=== PATIENT | male | born 1965 | race Caucasian/White ===

== ENCOUNTER 2025-02-08 08:51 | Outpatient (AMB) | payer OTHER, SELFPAY ==
--- NOTE | 2025-02-08 09:00 | A.OFFVIS_ITS ---
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 He was here for symptoms of numbness and tingling and passing out. His brother suffered from seizure disorder in childhood. Ba did not have any h/o sigificant head injury or drug abuse. In 2022, while he was in usual of health, one night, he went to the restroom to urinate. Apparently, after that, when he was walking back, something happened. He lost consciousness and fell forward hitting his face on the tub sustaining some fractures. He was taken to [facility] where no other pathology was found. The next day, he started having abdominal pain and went back to hospital when he was diagnosed with colon obstruction leading to surgery. His colon condition stabilized but he started having episodes of tingling and numbness. These episodes were happening about 4 times a week, each time lasting for a few minutes. There was no known trigger except that one time it was triggered by hearing a bad news. Typically, he would start feeling tingling in feet, which would extend to involve his legs and body to his head. With that, he might have a lightheaded feeling like he was going to pass out. Rarely, he has passed out, the last one in fall of 2023.?There was no witness to passing out episodes. He denied any associated de ja vu feeling, dissociated feeling, abnormal taste or smell, or headache. One episode was different causing few seconds of inability to speak while he was in a meeting. People in the meeting became aware and asked him if he was OK. He had a brain MRI at [facility] that according to the report revealed a left cerebellar lacunar infarct and a single T2 focal lesion in right frontal WM. EEG at [facility] revealed rare focal slowing in right frontotemporal region. A 48 hour ambulatory EEG was schedule but then was canceled as he stated that he started taking the medicine regular basis and was not having any symptoms and prefer to continue that way. There was no side effect. [facility] Medical History (Updated 02/08/25 @ 09:02 by Arben Peterson MD) Complex partial seizures Review of Systems Const Details: - Neurological: Denies any seizures since beginning medication. - Medication adherence: Reports inconsistency with taking the nighttime dose. Physical Exam Neuro Other: Mental Status: Alert and oriented to person, place, and time. Normal attention. Normal spontaneous speech, fluency, and comprehension. No obvious issues with mood and memory. Affect is appropriate. Cranial Nerves: CN II: Visual rodríguez full to confrontation, visual acuity intact. CN III, IV, : Pupils equal, round, reactive to light and accommodation. Extraocular movements are normal. CN V: Facial sensation is normal. CN VII: Facial movements symmetrical. CN VIII: Hearing intact to bedside conversation is normal. CN IX, X: Palate elevates symmetrically. CN XI: Shoulder shrug and head turn symmetrical. CN XII: Tongue midline without atrophy or fasciculations. Extrapyramidal: Full facial expressions and blinking. No rigidity. Movements are appropriate with no tremor or abnormality. Speech: Normal; no dysarthria or tremor. Assessment & Plan Assessment & Plan (1) Complex partial seizures: Comment: MRI brain WO at [facility] in Sep 2024: R frontal punctate WM lesion, left cerebellar lacune (reported) Routine EEG at [facility] in 2024: Focal R frontotemporal slowing Code(s): G40.209 - Localization-related (focal) (partial) symptomatic epilepsy and epileptic syndromes with complex partial seizures, not intractable, without status epilepticus Category: Medical Plan: In our discussions, I emphasized the significance of medication adherence to the patient, noting the increased risk of nighttime seizures and associated injury if doses are missed, especially at night. We discussed how his current once- daily intake results in half-time protection against seizures given the medication kinetics. Potential adjustments to his current dosage, up to a maximum tolerated dose of 900 mg twice daily, were explained should symptoms develop. We discussed no noted significant side effects from current medication, highlighting advantages in tolerability. Lifestyle approaches to manage risk factors and improve adherence were reviewed, including possible reminder systems. I scheduled routine follow-up appointments every six months but encouraged him to reach out should there be changes or concerns with his health. The option of extra dosage ingestion for high-risk situations, such as night travel or flights, was reviewed. Plan Impression: Probably complex partial secondarily generalized seizures with no obvious epileptogenic lesion noted on MRI. Recommendations: 1. Oxcarbazepine 150 mg twice a day, which at this time was working. Coding Level of Care Code Est Pt Level 4 (02422) Diagnoses Complex partial seizures G40.209
--- OUTSIDE RECORDS SUMMARY | 2025-02-08 09:22 | XMS_ITS | Patient Health Record ---
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 B1, Whole Blood; 642864-Pzqnodvqpyzjf Acid, Serum was developed and its performance characteristics determined by [facility]. It has not been cleared or approved by the Food and Drug Administration. Homocyst(e)ine 10.7 0.0-14.5 umol/L Methylmalonic Acid, Serum-70 6961 Reviewed date:12/27/2024 03:18:14 PM Interpretation: Performing Lab:[facility] [place], [address] [place] [address], Phone - [phone], Director - Yosefy Notes/Report: Test(s) 166066-Ggy. B1, Whole Blood; 391584-Kmoxvgmciefbu Acid, Serum was developed and its performance characteristics determined by [facility]. It has not been cleared or approved by the Food and Drug Administration. Methylmalonic Acid, Serum 186 0-378 nmol/L Comp. Metabolic Panel (14)-3 93737 Reviewed date:12/27/2024 01:39:18 PM Interpretation: Performing Lab:[facility] [place], [address] [facility], Phone - [phone], Director - Jodry Notes/Report: Test(s) 825953-Rbh. B1, Whole Blood; 973299-Muvjqbnukdjah Acid, Serum was developed and its performance characteristics determined by [facility]. It has not been cleared or approved by the Food and Drug Administration. Glucose 133 70-99 mg/dL BUN 13 6-24 mg/dL Creatinine 0.90 0.76-1.27 mg/dL eGFR 100 >59 mL/min/1.73 BUN/Creatinine Ratio 14 9-20 Sodium 140 134-144 mmol/L Potassium 4.5 3.5-5.2 mmol/L Chloride 101 96-106 mmol/L Carbon Dioxide, Total 20 20-29 mmol/L Calcium 10.1 8.7-10.2 mg/dL Protein, Total 6.8 6.0-8.5 g/dL Albumin 4.6 3.8-4.9 g/dL Globulin, Total 2.2 1.5-4.5 g/dL Bilirubin, Total 1.3 0.0-1.2 mg/dL Alkaline Phosphatase 69 44-121 IU/L AST (SGOT) 38 0-40 IU/L ALT (SGPT) 41 0-44 IU/L Vitamin B1 (Thiamine), Blood -[id number] Reviewed date:12/27/2024 10:55:42 AM Interpretation: Performing Lab:[facility] [place], [address] [facility], [place], Phone - [phone], Director - [facility] Notes/Report: Test(s) 040959-Aeg. B1, Whole Blood; 354699-Ebozttpvaplku Acid, Serum was developed and its performance characteristics determined by [facility]. It has not been cleared or approved by the Food and Drug Administration. Vit. B1, Whole Blood 140.8 66.5-200.0 nmol/L CBC with Diff, Platelet, NLR -[id number] Reviewed date:01/19/2025 10:05:30 AM Interpretation: Performing Lab:[facility] [place], [address] [facility], [place], Phone - [phone], Director - [facility] Notes/Report: Test(s) 115944-Nax. B1, Whole Blood; 438277-Nanbnuuebpjza Acid, Serum was developed and its performance characteristics determined by [facility]. It has not been cleared or approved by the Food and Drug Administration. WBC 4.9 3.4-10.8 x10E3/uL RBC 4.13 4.14-5.80 x10E6/uL Hemoglobin 15.1 13.0-17.7 g/dL Hematocrit 44.0 37.5-51.0 % MCV 107 79-97 fL MCH 36.6 26.6-33.0 pg MCHC 34.3 31.5-35.7 g/dL RDW 13.2 11.6-15.4 % Platelets 208 150-450 x10E3/uL Neutrophils 78 Not Estab. % Lymphs 10 Not Estab. % Monocytes 10 Not Estab. % Eos 0 Not Estab. % Basos 1 Not Estab. % Neutrophils (Absolute) 3.8 1.4-7.0 x10E3/uL Lymphs (Absolute) 0.5 0.7-3.1 x10E3/uL Neut/Lymph Ratio 7.6 0.0-2.9 ratio Published COVID-19 studies suggest: Low likelihood of severe COVID-19 disease progression 0.0-2.9 High likelihood of severe COVID-19 disease progression >4.9 Monocytes(Absolute) 0.5 0.1-0.9 x10E3/uL Eos (Absolute) 0.0 0.0-0.4 x10E3/uL Baso (Absolute) 0.0 0.0-0.2 x10E3/uL Immature Granulocytes 1 Not Estab. % Immature Grans (Abs) 0.0 0.0-0.1 x10E3/uL Vitamin B12 and Folate-79144 0 Reviewed date:12/27/2024 11:44:54 AM Interpretation: Performing Lab:[facility] [address], Phone - [phone], Director - [facility] Notes/Report: Test(s) 900139-Ozs. B1, Whole Blood; 671997-Xxbuirdydsepl Acid, Serum was developed and its performance characteristics determined by [facility]. It has not been cleared or approved by the Food and Drug Administration. Vitamin B12 770 889-0362 pg/mL Folate (Folic Acid), Serum 19.4 >3.0 ng/mL A serum folate concentration of less than 3.1 ng/mL is considered to represent clinical deficiency. PSA (Serial Monitor)-[id number] Reviewed date:10/03/2024 01:38:09 PM Interpretation: Performing Lab:[facility] [place], Phone - [phone], Director - MDJodry Notes/Report: Prostate Specific Ag 1.6 0.0-4.0 ng/mL [facility] ECLIA methodology. . According to the [employer], Serum PSA should decrease and remain at undetectable levels after radical prostatectomy. The AUA defines biochemical recurrence as an initial PSA value 0.2 ng/mL or greater followed by a subsequent confirmatory PSA value 0.2 ng/mL or greater. Values obtained with different assay methods or kits cannot be used interchangeably. Results cannot be interpreted as absolute evidence of the presence or absence of malignant disease. Lipid Panel-095792 Reviewed date:11/21/2024 08:54:55 AM Interpretation: Performing Lab:[facility], [address] [place] [address], Phone - [phone], Director - MDNikkydry Notes/Report: Cholesterol, Total 185 100-199 mg/dL Triglycerides 51 0-149 mg/dL HDL Cholesterol 77 >39 mg/dL VLDL Cholesterol Roscoe 10 5-40 mg/dL LDL Chol Calc (NIH) 98 0-99 mg/dL Lipid Panel-[id number] Reviewed date:09/30/2024 02:00:41 PM Interpretation: Performing Lab:[facility] [place], [address] [facility], Phone - [phone], Director - MDNikkydry Notes/Report: Cholesterol, Total 213 100-199 mg/dL Triglycerides 95 0-149 mg/dL HDL Cholesterol 87 >39 mg/dL VLDL Cholesterol Roscoe 16 5-40 mg/dL LDL Chol Calc (NIH) 110 0-99 mg/dL CBC, Platelet, No Differenti al-664458 Reviewed date:09/30/2024 02:01:18 PM Interpretation: Performing Lab:[facility], [address] [place] [address], Phone - [phone], Director - MDJodry Notes/Report: WBC 5.6 3.4-10.8 x10E3/uL RBC 4.12 4.14-5.80 x10E6/uL Hemoglobin 15.2 13.0-17.7 g/dL Hematocrit 43.0 37.5-51.0 % MCV 104 79-97 fL MCH 36.9 26.6-33.0 pg MCHC 35.3 31.5-35.7 g/dL RDW 14.4 11.6-15.4 % Platelets 265 150-450 x10E3/uL Reason For Referral Reason MRI finding of Chron ic Lacunar infarct, no significant past medical history. Continues to experience tingling/weakness in his body intermittently [facility] PLEASE EVALUATE AND TREAT Diagnosis 1 Other cerebral infar ction due to occlusion or stenosis of small artery (I63.81) Referral Organization [facility] Referring Provider First Name Willie Referring Provider Last Name Leif Referred Provider Specialty Neurology General Notes Referral was [facility]ed [facility]. Please contact for scheduling, Mami Martínez 09/23/2024 10:25:32 AM > Referral Priority Urgent Reason macrocytic anemia please evaluate and treat Diagnosis 1 Abnormal level of bl ood mineral (R79.0) Referral Organization [facility] Referring Provider First Name ASHLEY Referring Provider Last Name NATALYA Referring Provider Speciality Internal M edicine Referred Provider Specialty Hematology General Notes Referral was faxed t o [facility]. Please contact patient for scheduling ., Mami Martínez 01/19/2025 09:56:14 AM > Referral Priority Routine Medications Medication SIG (Take, Route, Frequency, Duration) Notes Start Date End Date Status Sertraline HCl 25 MG TAKE 1 TABLET BY MO UTH EVERY DAY; Duration: 90 Not-Taking OXcarbazepine 150 MG 1 tablet Orally Tw day 12/16/2024 Active Atorvastatin Calcium 10 MG TAKE 1 TABLET BY MOUTH EVERY DAY FOR 30 DAYS; Duration: 90 Active hydrALAZINE HCl 25 MG TAKE 1 TABLET BY M OUTH ONCE A DAY WITH FOOD FOR 30 DAYS; Duration: 90 days Active Imuran 50 MG as directed Orally daily Not-Taking azaTHIOprine 75 MG 2 tablets Orally 12/16/2024 Active Immunizations Vaccine Route Administration Date Status Comme nts COVID Moderna Unknown 09/26/2020 Administered COVID Moderna Unknown 10/26/2020 Administered COVID Moderna Unknown 06/13/2021 Administered Social History Tobacco Use: Social History Observation Description Date Details (start date - stop date) Never Smoker NA - NA Tobacco Use/Smoking Question Answer Notes Are you a nonsmoker Problems Problem Type SNOMED Code ICD Code Onset Dates Problem Status W/U Status Risk Notes Problem Squamous cell carcinoma of skin of face (440433125) Squamous cell carcinoma of skin of unspecified parts of face (C44.320) Active confirmed Problem 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, 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 confirmed Problem 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, 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 Problem Essential tremor (578026920) Essential tremor (G25.0) Active confirmed Problem Crohn's disease (55213323) Crohn's disease, unspecified, with other complication (K50.918) Active confirmed Problem Paresthesia (finding) (35386609) Paresthesia of skin (R20.2) Active confirmed Problem Dizziness and giddiness (002491468) Dizziness and giddiness (R42) Active confirmed Problem 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) Active confirmed Problem Generalized anxiety disorder (85211765) JACOB (generalized anxiety disorder) (F41.1) Active confirmed Vital Signs Heart Rate 90 /min 12/16/2024 Temperature 96.5 degrees Fahrenheit 12/16/2024 Blood pressure diastolic 82 mm Hg 12/16/2024 Oximetry 95 % 12/16/2024 Height 5'9'' in 12/16/2024 Blood pressure systolic 120 mm Hg 12/16/2024 Weight 184.8 lbs 12/16/2024 BMI 27.29 kg/m2 12/16/2024 Encounters Encounter Location Date Provider Diagnosis [address] [address] 08/16/[address] [address] 05/02/[address] [address] 05/18/2024 [facility] Crohn's disease, unspecified, with other complication K50.918 ; JACOB (generalized anxiety disorder) F41.1 ; Squamous cell carcinoma of skin of unspecified parts of face C44.320 ; Essential tremor G25.0 ; Other megaloblastic anemias, not elsewhere classified D53.1 ; Encounter for screening for malignant neoplasm of prostate Z12.5 and Foreign body sensation, throat R09.A2 [address] [place] [address] 08/12/2024 Ghadeer Mazloum Syncope and collapse R55 [facility] [address] [facility] [address] [place] [address] 11/15/2024 Ghadeer Mazloum Other cerebral infarction due to occlusion or stenosis of small artery I63.81 ; Unspecified convulsions R56.9 ; Hyperlipidemia, mixed E78.2 and JACOB (generalized anxiety disorder) F41.1 [facility] [address] [facility] [address] [place] [address] 12/16/2024 Ghadeer Chapincitoloum Paresthesia of skin R20.2 [facility] [address] [facility] [address] [place] [address] 05/11/2024 [facility] [address] [facility] [address] [place] [address] 07/28/2024 [facility] [address] [facility] [address] [place] [address] 08/16/2024 [facility] [address] [facility] [address] [place] [address] 08/17/2024 [facility] [address] [facility] [address] [place] [address] 08/23/2024 [facility] [address] [facility] [address] [place] [address] 09/22/2024 [facility] [address] [facility] [address] [place] [address] 09/22/2024 Ghadeer Mazloum Other cerebral infarction due to occlusion or stenosis of small artery I63.81 [facility] [address] [facility] [address] [place] [address] 09/23/2024 [facility] [address] [facility] [address] [place] [address] 09/30/2024 Ghadeer Mazloum Hyperlipidemia, mixe d E78.2 [facility] [address] [facility] [address] [place] [address] 10/04/2024 ASHLEY HOANG [facility] [address] [place] [address] 10/14/2024 Willie Yadav [facility] [address] [place] [address] 11/07/2024 ASHLEY HOANG [facility] [address] [facility] [address] [facility] [place] [address] 01/19/2025 ASHLEY HOANG Assessments Encounter Date Diagnosis (ICD Code) Assessment Notes Treatment Notes Treatment Clinical Notes Section Notes 05/18/2024 Crohn's disease, unspecified, with other complication (ICD-10 - K50.918) Mr. Wolf is a 58-year-old gentleman with Crohn's disease s/p hemicolectomy; sees Dr. Johnson at [facility] here for follow-up. Plan as follows Crohn's disease: - Stable at this point. Continue on Imuran. He has a follow-up with GI at [facility]. JACOB: - Stable at this point. Continue on sertraline 25 mg and hydralazine 25 mg. Patient is deferred to mental health therapy, he was given Ms. Green phone number for contact. Squamous cell carcinoma of the skin - He follows with dermatology on a regular basis. He recently had precancerous lesions removed. Essential tremors - Mild, it is possible due to drinking alcohol. Advised patient on abstinence. 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 Advised patient on abstainence given complications of alcohol. Globus sensation in the throat: - Possible GERD, advised patient on a trial of OTC pepcid, if sxs improve then we will start him on prescribed medication. Screening blood work before next appointment Blood work has been reviewed. General concerns have been discussed I have rendered the services for this patient under direct supervision of Dr. Hoang, who did not see the patient but was available upon request 05/18/2024 JACOB (generalized anxiety disorder) (ICD-10 - F41.1) Mr. Wolf is a 58-year-old gentleman with Crohn's disease s/p hemicolectomy; sees Dr. Johnson at [facility] here for follow-up. Plan as follows Crohn's disease: - Stable at this point. Continue on Imuran. He has a follow-up with GI at [facility]. JACOB: - Stable at this point. Continue on sertraline 25 mg and hydralazine 25 mg. Patient is deferred to mental health therapy, he was given Ms. Green phone number for contact. Squamous cell carcinoma of the skin - He follows with dermatology on a regular basis. He recently had precancerous lesions removed. Essential tremors - Mild, it is possible due to drinking alcohol. Advised patient on abstinence. 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 Advised patient on abstainence given complications of alcohol. Globus sensation in the throat: - Possible GERD, advised patient on a trial of OTC pepcid, if sxs improve then we will start him on prescribed medication. Screening blood work before next appointment Blood work has been reviewed. General concerns have been discussed I have rendered the services for this patient under direct supervision of Dr. Hoang, who did not see the patient but was available upon request 08/12/2024 Syncope and collapse (ICD-10 - R55) Mr. Wolf is a 58-year-old gentleman with Crohn's disease s/p hemicolectomy; sees Dr. Johnson at [facility] here for Losing consciousness again. Plan as follows Syncope - He does have history of syncope, per patient he had a full workup done in the past by his prior PCP including Holter monitor and workup was negative. He mentions that it has been about a year since his last episode of fainting. He mentions that recently he had an emotional moment which triggered his childhood memory, however 2 days after while at work meeting with his colleagues he suddenly experienced tingling sensation in his bilateral extremities Ascending to the upper extremities leading to not being able to speak or move for about 10 seconds and then he experienced postictal episode after. He admits to brief staring episode. He denies any urinary incontinence or biting on the tongue, Convulsions. He is not sure if he had EEG done in the past. Physical examination is unremarkable, no focal neurological Deficit. Negative Romberg. We will do full workup, ordered MRI of the brain without contrast to rule out any abnormalities, EEG of the brain to rule out seizure, Holter monitor to rule out any arrhythmias. His recent blood work was within normal limits. I have rendered the services for this patient under direct supervision of Dr. Hoang, who did not see the patient but was available upon request 09/22/2024 Other cerebral infarction due to occlusion or stenosis of small artery (ICD-10 - I63.81) 09/30/2024 Hyperlipidemia, mixed (ICD-10 - E78.2) 11/15/2024 Unspecified convulsions (ICD-10 - R56.9) Mr. Wolf is a 59-year-old gentleman with Crohn's disease s/p hemicolectomy; sees Dr. Johnson at [facility], Seizure follows with Dr. Peterson, here for Follow-up. Plan as follows Unspecified seizure. He had an EEG which was suggestive for seizure, patient was started on oxcarbazepine but patient did not start the medication yet as hesitant due to side effects. Discussed the importance of being on his medication to avoid any complications from seizures, to discuss discussing with his neurologist and alternative medication with less side effects. He does have a follow-up and a repeat EEG for 48 hours. Lacunar infarct. Incidental finding on MRI of the brain which I did show a chronic small lacunar infarcts. We will optimize management. He is cuurrently on statin, check lipid panel. Goal to be below 70. Blood pressure is well controlled without being on medication. Continue on ASA 81mg. Recent Holter monitor test was negative for arrhythmias. JACOB. His mood is stable currently folllows up with counselor. General concerns have been discussed with the patient I have rendered the services for this patient under direct supervision of Dr. Hoang, who did not see the patient but was available upon request 11/15/2024 Other cerebral infarction due to occlusion or stenosis of small artery (ICD-10 - I63.81) Mr. Wolf is a 59-year-old gentleman with Crohn's disease s/p hemicolectomy; sees Dr. Johnson at [facility], Seizure follows with Dr. Peterson, here for Follow-up. Plan as follows Unspecified seizure. He had an EEG which was suggestive for seizure, patient was started on oxcarbazepine but patient did not start the medication yet as hesitant due to side effects. Discussed the importance of being on his medication to avoid any complications from seizures, to discuss discussing with his neurologist and alternative medication with less side effects. He does have a follow-up and a repeat EEG for 48 hours. Lacunar infarct. Incidental finding on MRI of the brain which I did show a chronic small lacunar infarcts. We will optimize management. He is cuurrently on statin, check lipid panel. Goal to be below 70. Blood pressure is well controlled without being on medication. Continue on ASA 81mg. Recent Holter monitor test was negative for arrhythmias. JACOB. His mood is stable currently folllows up with counselor. General concerns have been discussed with the patient I have rendered the services for this patient under direct supervision of Dr. Hoang, who did not see the patient but was available upon request 12/16/2024 Paresthesia of skin (ICD-10 - R20.2) Mr. Wolf is a 59-year-old gentleman with Crohn's disease s/p hemicolectomy; sees Dr. Johnson at [facility] here for Follow-up on recent urgent care visit. Patient presented with a tingling sensation starting in his feet and going up. Plan as follows Paresthesia of the skin. Urgent care record patient did have hyponatremia and questionable B12 versus folate deficiency. We have done B12 and folate check a couple months ago and it was within normal limits. We will repeat comp, B12 and folate and thiamine. As for now he does not have any symptoms, he endorses improvement ever since he restarted himself on the antiseizure medication and by increasing the water intake with electrolytes. General concerns have been discussed I have rendered the services for this patient under direct supervision of Dr. Hoang, who did not see the patient but was available upon request 11/15/2024 Hyperlipidemia, mixed (ICD-10 - E78.2) Mr. Wolf is a 59-year-old gentleman with Crohn's disease s/p hemicolectomy; sees Dr. Johnson at [facility], Seizure follows with Dr. Peterson, here for Follow-up. Plan as follows Unspecified seizure. He had an EEG which was suggestive for seizure, patient was started on oxcarbazepine but patient did not start the medication yet as hesitant due to side effects. Discussed the importance of being on his medication to avoid any complications from seizures, to discuss discussing with his neurologist and alternative medication with less side effects. He does have a follow-up and a repeat EEG for 48 hours. Lacunar infarct. Incidental finding on MRI of the brain which I did show a chronic small lacunar infarcts. We will optimize management. He is cuurrently on statin, check lipid panel. Goal to be below 70. Blood pressure is well controlled without being on medication. Continue on ASA 81mg. Recent Holter monitor test was negative for arrhythmias. JACOB. His mood is stable currently folllows up with counselor. General concerns have been discussed with the patient I have rendered the services for this patient under direct supervision of Dr. Hoang, who did not see the patient but was available upon request 05/18/2024 Squamous cell carcinoma of skin of unspecified parts of face (ICD-10 - C44.320) Mr. Wolf is a 58-year-old gentleman with Crohn's disease s/p hemicolectomy; sees Dr. Johnson at [facility] here for follow-up. Plan as follows Crohn's disease: - Stable at this point. Continue on Imuran. He has a follow-up with GI at [facility]. JACOB: - Stable at this point. Continue on sertraline 25 mg and hydralazine 25 mg. Patient is deferred to mental health therapy, he was given Ms. Green phone number for contact. Squamous cell carcinoma of the skin - He follows with dermatology on a regular basis. He recently had precancerous lesions removed. Essential tremors - Mild, it is possible due to drinking alcohol. Advised patient on abstinence. 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 Advised patient on abstainence given complications of alcohol. Globus sensation in the throat: - Possible GERD, advised patient on a trial of OTC pepcid, if sxs improve then we will start him on prescribed medication. Screening blood work before next appointment Blood work has been reviewed. General concerns have been discussed I have rendered the services for this patient under direct supervision of Dr. Hoang, who did not see the patient but was available upon request 05/18/2024 Essential tremor (ICD-10 - G25.0) Mr. Wolf is a 58-year-old gentleman with Crohn's disease s/p hemicolectomy; sees Dr. Johnson at [facility] here for follow-up. Plan as follows Crohn's disease: - Stable at this point. Continue on Imuran. He has a follow-up with GI at [facility]. JACOB: - Stable at this point. Continue on sertraline 25 mg and hydralazine 25 mg. Patient is deferred to mental health therapy, he was given Ms. Green phone number for contact. Squamous cell carcinoma of the skin - He follows with dermatology on a regular basis. He recently had precancerous lesions removed. Essential tremors - Mild, it is possible due to drinking alcohol. Advised patient on abstinence. 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 Advised patient on abstainence given complications of alcohol. Globus sensation in the throat: - Possible GERD, advised patient on a trial of OTC pepcid, if sxs improve then we will start him on prescribed medication. Screening blood work before next appointment Blood work has been reviewed. General concerns have been discussed I have rendered the services for this patient under direct supervision of Dr. Hoang, who did not see the patient but was available upon request 11/15/2024 JACOB (generalized anxiety disorder) (ICD-10 - F41.1) Mr. Wolf is a 59-year-old gentleman with Crohn's disease s/p hemicolectomy; sees Dr. Johnson at [facility], Seizure follows with Dr. Peterson, here for Follow-up. Plan as follows Unspecified seizure. He had an EEG which was suggestive for seizure, patient was started on oxcarbazepine but patient did not start the medication yet as hesitant due to side effects. Discussed the importance of being on his medication to avoid any complications from seizures, to discuss discussing with his neurologist and alternative medication with less side effects. He does have a follow-up and a repeat EEG for 48 hours. Lacunar infarct. Incidental finding on MRI of the brain which I did show a chronic small lacunar infarcts. We will optimize management. He is cuurrently on statin, check lipid panel. Goal to be below 70. Blood pressure is well controlled without being on medication. Continue on ASA 81mg. Recent Holter monitor test was negative for arrhythmias. JACOB. His mood is stable currently folllows up with counselor. General concerns have been discussed with the patient I have rendered the services for this patient under direct supervision of Dr. 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 Wolf is a 58-year-old gentleman with Crohn's disease s/p hemicolectomy; sees Dr. Johnson at [facility] here for follow-up. Plan as follows Crohn's disease: - Stable at this point. Continue on Imuran. He has a follow-up with GI at [facility]. JACOB: - Stable at this point. Continue on sertraline 25 mg and hydralazine 25 mg. Patient is deferred to mental health therapy, he was given Ms. Green phone number for contact. Squamous cell carcinoma of the skin - He follows with dermatology on a regular basis. He recently had precancerous lesions removed. Essential tremors - Mild, it is possible due to drinking alcohol. Advised patient on abstinence. 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 Advised patient on abstainence given complications of alcohol. Globus sensation in the throat: - Possible GERD, advised patient on a trial of OTC pepcid, if sxs improve then we will start him on prescribed medication. Screening blood work before next appointment Blood work has been reviewed. General concerns have been discussed I have rendered the services for this patient under direct supervision of Dr. Hoang, who did not see the patient but was available upon request 05/18/2024 Encounter for screening for malignant neoplasm of prostate (ICD-10 - Z12.5) Mr. Wolf is a 58-year-old gentleman with Crohn's disease s/p hemicolectomy; sees Dr. Johnson at [facility] here for follow-up. Plan as follows Crohn's disease: - Stable at this point. Continue on Imuran. He has a follow-up with GI at [facility]. JACOB: - Stable at this point. Continue on sertraline 25 mg and hydralazine 25 mg. Patient is deferred to mental health therapy, he was given Ms. Green phone number for contact. Squamous cell carcinoma of the skin - He follows with dermatology on a regular basis. He recently had precancerous lesions removed. Essential tremors - Mild, it is possible due to drinking alcohol. Advised patient on abstinence. 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 Advised patient on abstainence given complications of alcohol. Globus sensation in the throat: - Possible GERD, advised patient on a trial of OTC pepcid, if sxs improve then we will start him on prescribed medication. Screening blood work before next appointment Blood work has been reviewed. General concerns have been discussed I have rendered the services for this patient under direct supervision of Dr. Hoang, who did not see the patient but was available upon request 05/18/2024 Foreign body sensation, throat (ICD-10 - R09.A2) Mr. Wolf is a 58-year-old gentleman with Crohn's disease s/p hemicolectomy; sees Dr. Johnson at [facility] here for follow-up. Plan as follows Crohn's disease: - Stable at this point. Continue on Imuran. He has a follow-up with GI at [facility]. JACOB: - Stable at this point. Continue on sertraline 25 mg and hydralazine 25 mg. Patient is deferred to mental health therapy, he was given Ms. Green phone number for contact. Squamous cell carcinoma of the skin - He follows with dermatology on a regular basis. He recently had precancerous lesions removed. Essential tremors - Mild, it is possible due to drinking alcohol. Advised patient on abstinence. 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 Advised patient on abstainence given complications of alcohol. Globus sensation in the throat: - Possible GERD, advised patient on a trial of OTC pepcid, if sxs improve then we will start him on prescribed medication. Screening blood work before next appointment Blood work has been reviewed. General concerns have been discussed I have rendered the services for this patient under direct supervision of Dr. Hoang, who did not see the patient but was available upon request Plan Of Treatment Pending Test Test Name Order Date Ultrasound : Abdomen 12/31/2023 Electroencephalography (EEG) 08/12/2024 MRI : Brain without Contrast 08/12/2024 Holter Test 08/12/2024 Next Appt Details Provider Name:Willie gaines, 05/26/2025 01:00:00 PM, [address], [place], [address], Insurance Providers Payer Name Payer Address Payer Phone Subscriber Number Group Number Insured Name Patient Relationship to Insured Coverage Start Date Coverage End Date [facility] [address] [place] [phone] [id number] Ba Wolf Self - patient is the insured 4 Medical (General) History Medical History History ICD Code Crohn's disease; sees Dr. Schaeffer Lacunar infarct Seizure-like activity on EEG Surgical History Surgery Date(Month/Year) hemicolectomy at [facility] be cause of small bowel obstruction secondary to Crohn's disease 2021
--- OUTSIDE RECORDS SUMMARY | 2025-02-08 09:22 | XMS_ITS | Clinical Summary ---
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 Role Phone Unavailable Primary Care Provider Unavailabl e Social History Tobacco Use Types Packs/Day Years Used Date Smoking Tobacco: Never Assessed Sex and Gender Information Value Date Recorded Sex Assigned at Not on file Legal Sex Male 3:07 PM EDT Gender Identity Not on file Sexual Orientation Not on file Plan of Treatment Health Maintenance Due Date Last Done Comments DTaP,Tdap,and Td Vaccines (1 - Tdap) 10/01/1986 Hepatitis B Vaccines (1 of 3 - 19+ 3-dose series) 10/01/1986 Pneumococcal Vaccine: 50+ Ye ars (1 of 1 - PCV) 10/01/2017 Zoster Vaccines (1 of 2) 10/01/2017 COVID-19 Vaccine ( - 2023-2 5 season) 2024 Depression Screening 06/08/2024 Cholesterol Screening (Lipid Panel) 11/02/2024 Colorectal Cancer Screening: Colonoscopy 11/02/2024 HIV Screening 11/02/2024 Hepatitis C Screening 11/02/2024 Social Influencers of Health Screening 11/02/2024 Influenza Vaccine (#1) 2025 HIB Vaccines Aged Out No longer eligi ble based on patient's age to complete this topic HPV Vaccines Aged Out No longer eligi ble based on patient's age to complete this topic Hepatitis A Vaccines Aged Out No long er eligible based on patient's age to complete this topic IPV Vaccines Aged Out No longer eligi ble based on patient's age to complete this topic MMR Vaccines Aged Out No longer eligi ble based on patient's age to complete this topic Meningococcal ACWY Vaccine Aged Out N o longer eligible based on patient's age to complete this topic Meningococcal B Vaccine Aged Out No l onger eligible based on patient's age to complete this topic RSV Immunization Patients Un armida 20 months Aged Out No longer eligible b ased on patient's age to complete this topic Varicella Vaccines Aged Out No longer eligible based on patient's age to complete this topic [place] [address] [place] [address]
--- OUTSIDE RECORDS SUMMARY | 2025-02-08 09:22 | XMS_ITS ---
Author Name [facility] Organization Unknown Encounters Encounter Type Encounter Reason Primary Diagnosis Location Date Ambulatory [facility] 01/22/2022 Care Team Organization Name Specialty Phone Email Start Date End Da te [facility] Arben Tejeda Primary Care 12/24/[address] [place] [address]
--- OUTSIDE RECORDS SUMMARY | 2025-02-08 09:22 | XMS_ITS | Clinical Summary ---
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 Role Phone Unavailable Primary Care Provider Unavailabl e Social History Tobacco Use Types Packs/Day Years Used Date Smoking Tobacco: Never Assessed Sex and Gender Information Value Date Recorded Sex Assigned at Not on file Legal Sex Male 11:18 AM EDT Gender Identity Not on file Sexual Orientation Not on file Plan of Treatment Health Maintenance Due Date Last Done Comments Hepatitis C Virus Screening 1965 HIV Screening 10/01/1980 DTaP/Tdap/Td Vaccines (1 - Tdap) 10/01/1986 Hepatitis B Vaccines (1 of 3 - 19+ 3-dose series) 09/07 Pneumococcal Vaccines 50+ (1 of 1 - PCV) 10/01/2017 Zoster (Shingles) Vaccine (1 of 2) 10/01/2017 COVID-19 Vaccine ( - 2023- season) 2024
== END 2025-02-08 09:10 | disposition home or self-care (01) ==
LOC: HO.HSM 08:51
PROVIDERS: PCP Psychiatry & Neurology Neurology; Referring Provider Hospitalist; Visit Provider Psychiatry & Neurology Neurology
DX: G40.209 Localization-related (focal) (partial) symptomatic epilepsy and epileptic syndromes with complex partial seizures, not intractable, without status epilepticus (principal)
CPT/HCPCS: 99214